=== PATIENT | female | born 1950 | race Caucasian/White ===

== ENCOUNTER → 2024-04-12 11:17 | Outpatient (REF) | payer MEDICARE, BC, SELFPAY | LOC: HWWDC 11:17 | PROVIDERS: ATTENDING PHYSICIAN Nurse Practitioner Adult Health | DX: Z12.31 Encounter for screening mammogram for malignant neoplasm of breast (principal) | CPT/HCPCS: 77063; 77067 ==

== ENCOUNTER → 2024-06-06 06:50 | Outpatient (REF) | payer MEDICARE, BC, SELFPAY | LOC: HWRAD 06:50 | PROVIDERS: ATTENDING PHYSICIAN Nurse Practitioner Adult Health | DX: E04.2 Nontoxic multinodular goiter (principal) | CPT/HCPCS: 76536 ==

== ENCOUNTER → 2025-05-15 08:33 | Outpatient (REF) | payer MEDICARE, BC, SELFPAY | LOC: HWRAD 08:33 | PROVIDERS: ATTENDING PHYSICIAN Nurse Practitioner Adult Health | DX: Z12.31 Encounter for screening mammogram for malignant neoplasm of breast (principal); Z78.0 Asymptomatic menopausal state; M85.80 Other specified disorders of bone density and structure, unspecified site | CPT/HCPCS: 77063; 77067 ==